=== PATIENT | male | born 1960 | race Two or more races ===

== ENCOUNTER 2024-11-04 08:34 | Outpatient (CLI) | payer OTHER | END 2024-11-04 08:50 | disposition home or self-care (01) | LOC: TOM 08:34 | PROVIDERS: ATTEND Internal Medicine Gastroenterology | DX: R10.32 Left lower quadrant pain (principal) ==

== ENCOUNTER 2025-03-01 07:03 | Outpatient (CLI) | payer OTHER | END 2025-03-01 07:08 | disposition home or self-care (01) | LOC: TOM 07:03 | PROVIDERS: ATTEND Internal Medicine Gastroenterology | DX: Z12.11 Encounter for screening for malignant neoplasm of colon (principal) ==